=== PATIENT | female | born 1950 | race African-American/Black ===

== ENCOUNTER 2017-07-09 10:03 | Emergency (ER) | payer BC, OTHER ==
[~2017-07-09] VITALS: Ht 170.2 cm; Wt 80.0 kg
[2017-07-09] MEDS ORDERED: ONDANSETRON 4MG ODT PO ONE (10:45)
[2017-07-09 11:18] LABS: BASOPHILS % 0.7 % (0.0-2.0); EOSINOPHILS % 0.6 % (0.0-5.0); HEMATOCRIT. 44.4 % (36.0-48.0); HEMOGLOBIN. 14.6 g/dL (12.0-16.0); LYMPHOCYTES % 32.7 % (20.0-50.0); MEAN CORPUSCULAR HEMOGLOBIN 28.3 pg (28.0-32.0); MEAN CORPUSCULAR VOLUME 85.9 fL (81.0-99.0); MEAN PLATELET VOLUME 9.1 fl (7.4-10.4); MONOCYTES % 7.5 % (2.0-8.0); NEUTROPHILS % 58.5 % (40.0-76.0); PLATELET 191 x1000/uL (130-400); RED BLOOD CELL COUNT 5.17 mill/uL (4.2-5.4); RED CELL DISTRIBUTION WIDTH 14.3 % (11.6-14.6)
[2017-07-09 11:25] LABS: CHLORIDE 111 mEq/L (98-107)
[2017-07-09 11:27] LABS: INR 1.1; PARTIAL THROMBOPLASTIN TIME 26.8 sec (23.4-31.0); PROTHROMBIN TIME 11.1 sec (9.4-11.6)
[2017-07-09 13:02] VITALS: BP 121/96
== END 2017-07-09 13:19 | disposition home or self-care (01) ==
LOC: ER 11:10
DX: S42.002A Fracture of unspecified part of left clavicle, initial encounter for closed fracture (principal); F17.200 Nicotine dependence, unspecified, uncomplicated; F12.10 Cannabis abuse, uncomplicated; R11.0 Nausea; R06.02 Shortness of breath; Z88.8 Allergy status to other drugs, medicaments and biological substances; X58.XXXA Exposure to other specified factors, initial encounter; Y93.89 Activity, other specified; Y92.89 Other specified places as the place of occurrence of the external cause; Y99.8 Other external cause status
CPT/HCPCS: 36415; 70450; 71045; 73030; 80053; 83880; 84484; 85025; 85610; 85730; 93005; 99285; Q0162; Z7610; A4565

== ENCOUNTER 2018-11-04 18:02 | Emergency (ER) | payer BC ==
[~2018-11-04] VITALS: Ht 170.2 cm; Wt 72.7 kg
[2018-11-04 19:50] VITALS: BP 139/79
== END 2018-11-04 20:13 | disposition home or self-care (01) ==
LOC: ER 18:02
DX: L03.116 Cellulitis of left lower limb (principal); L03.115 Cellulitis of right lower limb; L25.9 Unspecified contact dermatitis, unspecified cause; F17.200 Nicotine dependence, unspecified, uncomplicated; Z91.048 Other nonmedicinal substance allergy status
CPT/HCPCS: 99283